=== PATIENT | female | born 1980 | race Caucasian/White ===

== ENCOUNTER 2018-11-30 10:14 | Emergency (ER) | payer SELFPAY ==
[2018-11-30 10:25] VITALS: BP 121/89
[2018-11-30] MEDS ORDERED: ALPRAZolam 0.25 MG TAB PO ONE (11:04)
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
== END 2018-11-30 11:12 | disposition home or self-care (01) ==
DX: F41.9 Anxiety disorder, unspecified (principal); Z91.410 Personal history of adult physical and sexual abuse

== ENCOUNTER 2018-12-04 11:10 | Emergency (ER) | payer MEDICAID | END 2018-12-04 12:00 | disposition left against medical advice (07) | DX: Z53.21 Procedure and treatment not carried out due to patient leaving prior to being seen by health care provider (principal) ==

== ENCOUNTER 2018-12-04 14:37 | Emergency (ER) | payer MEDICAID, OTHER | END 2018-12-04 15:02 | disposition home or self-care (01) | DX: F41.9 Anxiety disorder, unspecified (principal); Z63.5 Disruption of family by separation and divorce ==